=== PATIENT | male | born 1960 | race Caucasian/White ===

== ENCOUNTER 2017-10-30 07:40 | Inpatient (IN) | payer SELFPAY ==
[2017-10-30] MEDS ORDERED: Diltiazem HCl 125 MG, Admixture Fee 1 EACH in Sodium Chloride 0.9% 100 ML IVPB SCH (08:00)
[2017-10-30 08:05] LABS: #Basophils 0.1 thou/uL (0.0-0.2); #Eosinphils 0.6 thou/uL (0.0-0.7); #Lymphocytes 1.6 thou/uL (1.20-3.40); #Monocytes 0.5 thou/uL (0.11-0.59); #Neutrophils 3.4 thou/uL (1.40-6.50); %Basophils 1.1 % (0.0-1.0); %Eosinophils 9.5 % (0.0-10.0); %Lymphocytes 26.1 % (21.0-51.0); %Monocytes 7.9 % (0.0-10.0); %Neutrophils 55.5 % (42.0-75.0); Hemoglobin 14.2 g/dL (14.0-18.0); Mean Corpuscular HGB CONC 31.9 g/dL (32.0-36.0); Mean Corpuscular Hemoglobin 30.4 pg (27.0-31.0); Mean Corpuscular Volume 95.2 fl (80.0-94.0); Mean Platelet Volume 8.6 fL (7.4-10.4); Platelet Count 188 thou/uL (130-400); RBC Distribution Width 13.3 % (11.5-14.5); Red Blood Cell (RBC) Count 4.67 mill/uL (4.70-6.10); White Blood Cell (WBC) Count 6.1 thou/uL (4.8-10.8)
[2017-10-30 08:27] LABS: ALT (SGPT) 15 U/L (8-55); AST (SGOT) 11 U/L (5-34); Albumin 3.5 g/dL (3.5-5.0); Alkaline Phosphatase 51 U/L (40-150); Anion Gap 13 mmol/L (10-20); BUN (Urea Nitrogen) 26 mg/dL (8.4-25.7); Bilirubin, Total 0.2 mg/dL (0.2-1.2); CK (CPK) 45 U/L (30-200); Calc. Creatinine Clearance 0 mL/min (70-130); Calcium 8.6 mg/dL (7.8-10.44); Carbon Dioxide 21 mmol/L (22-29); Chloride 107 mmol/L (98-107); Estimated GFR-MDRD 79; Glucose 79 mg/dL (70-105); Potassium 4.5 mmol/L (3.5-5.1); Protein, Total 6.5 g/dL (6.0-8.3); Sodium 136 mmol/L (136-145)
[2017-10-30 08:31] LABS: CKMB 0.7 ng/mL (0-6.6); Troponin I Less than 0.010 ng/mL (< 0.028)
--- NOTE | 2017-10-30 09:56 | RAD ---
PORTABLE CHEST 1 VIEW: Date: 10/30/17 Time: 0812 hours HISTORY: Chest pain, exacerbation of atrial fibrillation. FINDINGS: The heart size is normal. The aorta is tortuous. No lobar consolidation, pneumothoraces, or pleural e ffusions are seen. IMPRESSION: No radiographic evidence of acute cardiopulmonary process. POS: OFF
[2017-10-30] MEDS ORDERED: Enoxaparin Sodium 80 MG/0.8 ML SYRINGE ONE (10:20)
--- NOTE | 2017-10-30 11:00 | CT ---
CT ANGIOGRAM CHEST WITH 3D RENDERING: Date: 10/30/17 HISTORY: 57-year-old male with history of chest pain. History of hypertension, COPD, and thyroid problems. FINDINGS: No significant CT evidence for acute pulmonary embolism. Small hiatal hernia. Three vessel coronary a rtery calcific disease. No pleural effusion or pericardial effusion. The visualized upper abdomen is unremarkable. The ascending aorta approximates 4.1 cm transversely, which is mildly dilated, but no f ocal aneurysm. IMPRESSION: No significant CT evidence for acute pulmonary embolism. Three vessel coronary artery calcific diseas e. Borderline or mildly dilated aortic root and ascending aorta without focal aneurysm. POS: CHANO
[2017-10-30] MEDS ORDERED: Acetaminophen 325 MG TAB PO PRN ×2 (12:22→12:28)
[2017-10-30] MEDS ORDERED: Ondansetron HCl/PF 4 MG/2 ML Vial IVP PRN ×2 (12:22→12:28)
[2017-10-30] MEDS ORDERED: Ondansetron ODT 4 MG TAB SL PRN (12:22)
[2017-10-30] MEDS ORDERED: Senokot 8.6 MG TAB PO PRN (12:28)
[2017-10-30] MEDS ORDERED: Ondansetron ODT 4 MG TAB PO PRN (12:28)
[2017-10-30] MEDS ORDERED: Artificial Tears 18 DROP/0.9 ML EA EYE PRN (12:28)
[2017-10-30] MEDS ORDERED: Diabetic Tussin 200 MG/10 ML UDCUP PO PRN (12:28)
[2017-10-30] MEDS ORDERED: Sodium Chloride 0.65% Nasal 44 ML BOT EA NARE PRN (12:28)
[2017-10-30] MEDS ORDERED: Loratadine 10 MG TAB PO PRN (12:28)
[2017-10-30] MEDS ORDERED: HYDROcodone/Acetaminophen 5/325 mg Tablet PO PRN (12:28)
[2017-10-30] MEDS ORDERED: Zolpidem Tartrate 5 MG TAB PO PRN (12:28)
[2017-10-30] MEDS ORDERED: hydrALAZINE 20 MG/ML VIAL SLOW IVP PRN (12:28)
[2017-10-30] MEDS ORDERED: Mag-Al 1200 mg/1200 mg/30 ML UDCUP PO PRN (12:28)
[2017-10-30] MEDS ORDERED: Milk Of Magnesia 30 ML UDCUP PO PRN (12:28)
[2017-10-30] MEDS ORDERED: Chloraseptic Spray 180 ml Bottle PO PRN (12:28)
[2017-10-30] MEDS ORDERED: Eucerin (Mineral Oil/Petrolatum,White) 30 gm Jar TOP PRN (12:28)
[2017-10-30] MEDS ORDERED: Loperamide HCl 2 MG CAP PO PRN (12:28)
[2017-10-30] MEDS ORDERED: Nitroglycerin 0.4 MG TAB (25 Tab Bottle) SL PRN (12:28)
[2017-10-30 12:55] VITALS: BMI 24.3
[2017-10-30] MEDS ORDERED: ISOVUE-370 76%-LOCM 1 ML ONE (14:26)
--- NOTE | 2017-10-30 14:39 | HP ---
PRIMARY CARE PHYSICIAN: [facility] call admission. REASON FOR ADMISSION: Atrial fibrillation with rapid ventricular response, status post cardioversion, chest pain. HISTORY OF PRESENT ILLNESS: A 57-year-old male who has a history of paroxysmal atrial fibrillation, who lives in [facility]. He woke up around 3:00 a.m. this morning, at that time he was feeling palpitation and chest discomfort. Initially, he thought that this episode will go away by itself because he was getting similar type of episode in the past, but it was spontaneously going away in few minutes; this time, it did not go away. He was having palpitations , dizziness, and chest discomfort with heaviness and tightness. He was also feeling mild shortness of breath. Somehow, he finished his night and when he woke up this morning around 7, he went to breakfast. After returning from breakfast, he was having more worse symptoms and it was getting worse and that is why he called paramedics and subsequently the patient was brought to emergency room. The patient was found with atrial fibrillation with RVR. He was hypotensive. He was having symptomatic fibrillation with RVR. The patient was given Cardizem bolus and subsequently Cardizem drip was started. The patient was brought to emergency room and he was hemodynamically unstable. After giving Lovenox, the patient was given DC cardioversion and subsequently the patient was converted to sinus rhythm. The patient was relatively hypotensive in the emergency room though he was not feeling any dizziness, palpitation or chest discomfort after cardioversion. He was feeling much better. His highest heart rate in the emergency room was 139 and irregular, and his lowest blood pressure in the emergency room was 75/56. The patient reports that he had this type of episode 3 times so far, one was in March, second was in June, and third one is now. The patient is only taking aspirin, but he is not on any chronic anticoagulation therapy. ALLERGIES: PENICILLIN. CURRENT HOME MEDICATIONS: Aspirin 81 mg p.o. daily, lisinopril 20 mg twice daily, Synthroid 50 mcg p.o. daily, Zoloft 50 mg p.o. daily, and Depakote 500 mg p.o. daily. REVIEW OF SYSTEMS: Please see my HPI for pertinent positive and negative. All other review of systems reviewed and negative except as mentioned in the HPI. Constitutional: Weight loss or gain, ability to conduct usual activities. Skin: Rash, itching. Eyes: Double vision, pain. ENT/Mouth: Nose bleeding, neck stiffness, pain, tenderness. Cardiovascular: Palpitations, dyspnea on exertion, orthopnea. Respiratory: Shortness of breath, wheezing, cough, hemoptysis, fever or night sweats. Gastrointestinal: Poor appetite, abdominal pain, heartburn, nausea, vomiting, constipation, or diarrhea. Genitourinary: Urgency, frequency, dysuria, nocturia. Musculoskeletal: Pain, swelling. Neurologic/Psychiatric: Anxiety, depression. Allergy/Immunologic: Skin rash, bleeding tendency. PAST MEDICAL HISTORY: The patient reports that he has paroxysmal atrial fibrillation history, hypertension, and coronary artery disease. PAST SURGICAL HISTORY: Appendicectomy and hernia repair. PAST PSYCHIATRIC HISTORY: Bipolar disorder. SOCIAL HISTORY: The patient denies any current IV drug abuse. He denies any smoking. He denies any alcohol abuse, but he abused multiple drugs in the past and that is why he is in [facility]. He does have history of IV drug abuse as well in past. FAMILY HISTORY: No strong family history of premature coronary artery disease, stroke or cancer. EMERGENCY ROOM COURSE: The patient was given Lovenox 68 mg subcu, normal saline 500 mL, etomidate 0.15 mg per kg one time dose, Cardizem bolus and Cardizem drip was started. PHYSICAL EXAMINATION: VITAL SIGNS: On arrival, blood pressure 100/65, pulse of 139 and irregular, respiratory rate 24, temperature 98.4, saturation 99% on room air, lowest blood pressure was 75/56, highest pulse rate is 140 and irregular. GENERAL: The patient is currently alert, awake, no obvious acute distress. HEAD: Normocephalic, atraumatic. EYES: Pupils round, reactive to light. Extraocular muscle intact. ENT: Oropharynx within normal limits. Poor dentition. Moist mucous membranes. No pharyngeal erythema, no exudate. NECK: Supple, no JVD, no thyromegaly, no carotid bruit, no jugular venous distention. LUNGS: Clear to auscultation without any rhonchi or rales. CARDIAC: Currently, the patient has: S1, S2 regular without any murmur, no gallop, no rub. ABDOMEN: Soft, bowel sounds present, nontender, nondistended. No organomegaly , no mass, no suprapubic tenderness. BACK: Unremarkable. No CVA tenderness. EXTREMITIES: Upper extremity: Passive movements of all joints are normal. Lower extremities: No edema. Good peripheral pulsation. SKIN: No skin rash. HEMATOLOGICAL: No lymphadenopathy. PSYCHIATRIC: Normal affect. NEUROLOGIC: The patient is alert and oriented x3. Cranial nerves II-XII intact. Motor and sensation within normal limits. No focal neurological deficit noted. SIGNIFICANT LABORATORY: EKG showing atrial fibrillation with rapid ventricular response, nonspecific ST-T changes. EKG done after cardioversion showing normal sinus rhythm, sinus bradycardia, low voltage QRS complex. CT angio negative for pulmonary embolism, mild dilatation of aortic root. Chest x-ray based on my review, no acute cardiopulmonary process. CBC: WBC 6.1, hemoglobin 14.2, platelet 188. D-dimer 0.72. BMP: Sodium 146, potassium 4.5, chloride 107, carbon dioxide 21, anion gap 13, BUN 26, creatinine 0.97, glucose 79, calcium 0.2. LFTs: AST 11, ALT 51, alkaline phosphatase 51. CK 45, CK-MB 0.7, troponin I less than 0.010, albumin 3.5, TSH 5.22, free T4 5.9. ASSESSMENT AND PLAN: 1. Atrial fibrillation with rapid ventricular response converted to normal sinus rhythm after cardioversion. 2. Hemodynamic instability due to problem #1 with atrial fibrillation with rapid ventricular response. The patient had hypotension and symptoms with the palpitation, chest pain, and shortness of breath resolved after cardioversion. 3. Hypothyroidism. 4. Anxiety and depression. 5. History of polysubstance abuse, lives in [facility]. 6. History of hypertension, but currently low blood pressure. 7. History of bipolar disorder. 8. Elevated D-dimer, but negative for pulmonary embolism. 9. DVT prophylaxis with Lovenox 1 mg per kg subcu twice daily. 10. Gastrointestinal prophylaxis with Pepcid 20 mg p.o. b.i.d. 11. Code status: The patient is FULL CODE. The patient does not have any surrogate decision maker. 12. Hypothyroidism 13. Anxiety depression PLAN: Admission to telemetry floor, monitor on telemetry floor, get echocardiography. Continue anticoagulation with Lovenox 1 mg per kg. Upon discharge, consider full dose of aspirin and as patient required cardioversion, we will consider Eliquis therapy for at least one month. We will monitor on telemetry floor for any recurrence. We will obtain echocardiography to assess ejection fraction and other structural abnormality. Disposition plan based on clinical course. We are expecting patient's stay in the hospital more than 24 hours. Plan of care discussed with the patient in detail. LICO
--- NOTE | 2017-10-30 17:53 | CON ---
DATE OF ADMISSION: 10/30/2017 DATE OF CONSULTATION: 10/30/2017 INDICATION FOR CONSULTATION: A 57-year-old patient with atrial fibrillation, rapid ventricular respo nse. HISTORY OF PRESENT ILLNESS: This is a very unfortunate 57-year-old gentleman has been [facility] due to drug abuse. He has had some problems using amphetamines. He is actual ly in a detention house at this time. He noticed that he was not feeling well, had increased heart rat e. He has felt palpitations. The facility there checked him out and found that he was in a rapid he art rate. He was sent to the emergency room. In the emergency room, he was found to have atrial fib rillation with rapid ventricular response which was not too extreme however, he was not feeling well. He was given IV diltiazem and then became hypotensive. He then underwent electrocardioversion of a trial fibrillation back to sinus rhythm in the emergency room after I believe he was given one shock. I cannot find exactly a dose that was given, but appears that he was converted back to sinus rhythm after electrical external shock and he had also complained of some chest tightness at the time of th e atrial fibrillation with rapid ventricular response. He does have risk factors of coronary artery disease which include history of tobacco abuse. He just recently stopped smoking, smoked up to 3 pac ks a day. There was no history of hypercholesterolemia, hypertension, at least not according to the patient. He does not have any early family history of heart disease. PAST MEDICAL HISTORY: Significant for an appendectomy, left hernia repair. He has had a history of atrial fibrillation. This apparently is his third episode. He also was told that he had a weak hear t. He has a history of COPD in the form of asthma. ALLERGIES: She is allergies allergic to PENICILLIN. MEDICATIONS: His medications prior to admission included aspirin, lisinopril, Synthroid, sertraline, and divalproex. At this time, he has been started on diltiazem orally, aspirin 325 mg a day, Depako te, he is on Lovenox, Pepcid, Synthroid, Zoloft, p.r.n. medications which are outlined in the compute r. Actually, they are holding his diltiazem at this time. He has remained in sinus rhythm since he was cardioverted. He has not apparently been on any antiarrhythmics in the past. He has not had a s tress test as far as he can remember and His last echocardiogram was performed apparently back in 2016 in [place], [place] where he was told he had a decrease in ejection fraction that he also might need a pacemaker, but no further workup was done according to the patient since he had no finances at the time. REVIEW OF SYSTEMS: Twelve-point review of systems is relatively unremarkable except what was noted i n the history of present illness. He denied any HEENT complaints. He had no pulmonary complaints ex cept for occasional asthma and COPD for which she has inhaler. He had no GI or complaints such as nausea, vomiting, diarrhea, dysuria, polyuria, or hematuria. He denied any lower extremity edema or swelling. No claudication symptoms and he denied any history of seizures or syncope. FAMILY HISTORY: Noncontributory for any early heart disease. SOCIAL HISTORY: He has 4 children, one of which has hypertension. The other ones are unremarkable f or any early history of heart disease. As far as his own family, he has been estranged from his fami ly for some time now. His mother a year or two ago from heart failure, but was an elderly age. PHYSICAL EXAMINATION: GENERAL: Reveals a middle-aged gentleman who actually appears older than his stated age. VITAL SIGNS: His blood pressure is 100/65, heart rate is 60 and regular, respiratory rate 13. He is afebrile. HEENT: Shows head to be normocephalic, atraumatic. He has poor dentition. Carotid pulses are prese nt without bruits. CHEST: Clear to auscultation without any rales, rhonchi or wheezing. CARDIOVASCULAR: Exam reveals a regular rate and rhythm with normal S1, S2. I cannot hear an S3 nor an S4, nor were there any significant murmurs, heaves, thrills, bruits or rubs noted. ABDOMEN: Soft and flat and nontender with positive bowel sounds. No organomegaly or masses are note d. Femoral pulses are present. EXTREMITIES: Showed no clubbing, cyanosis or edema. Pedal pulses are present. NEUROLOGIC: The patient is fully intact. He has normal strength, normal tone. He is able to ambula te normally. SKIN: Warm and dry, but has tattoos. IMPRESSION: 1. Atrial fibrillation with rapid ventricular response, which responded to electrical cardioversion and possibly also to the diltiazem. The initial heart rate in the emergency room was reported as marika ng 160 with a blood pressure of 80/50. He has remained stable after being undergoing cardioversion. Most likely, we will await the results of the echocardiogram. Also, he will need to undergo some ty pe of stress testing to rule out evidence for underlying ischemia as a possible etiology of the atria l fibrillation. His TSH was 5.22, but he is on thyroid medications. He does not appear to be hypoth yroid by any means. Other laboratory data was within normal limits. May need to start him on either beta blockers or some antiarrhythmic to decrease the risk of atrial fibrillation depending on whethe r or not the patient will and can take the medications. He most likely will need some type of assist ance getting the medications. 2. History of hypothyroidism. He will continue to take his replacements. We will need to check his overall T4 levels to see whether or not this is abnormal. I believe normally his T4 was 5.9 with a TSH of 5.22 which is associated with being on the medications and this appears to be stable. We coul d try him on low dose of diltiazem and see whether or not he tolerates that, ensure that he has enoug h volume on board, this may be enough to maintain a sinus rhythm. I will suggest she undergo stress testing and first we will evaluate the echocardiogram also.
[2017-10-30] MEDS: Famotidine 20 MG TAB PO SCH (21:18)
[2017-10-30] MEDS: Diltiazem HCl SR 60 mg Capsule PO SCH (21:18)
[2017-10-30] MEDS: Enoxaparin Sodium 60 MG/0.6 ML SYRINGE SC SCH (21:19)
[2017-10-31] MEDS: Levothyroxine Sodium 50 MCG TAB PO SCH (05:07)
[2017-10-31 05:28] LABS: #Basophils 0.1 thou/uL (0.0-0.2); #Eosinphils 0.6 thou/uL (0.0-0.7); #Lymphocytes 1.8 thou/uL (1.20-3.40); #Monocytes 0.6 thou/uL (0.11-0.59); #Neutrophils 2.9 thou/uL (1.40-6.50); %Basophils 1.6 % (0.0-1.0); %Eosinophils 10.3 % (0.0-10.0); %Lymphocytes 29.6 % (21.0-51.0); %Monocytes 10.1 % (0.0-10.0); %Neutrophils 48.5 % (42.0-75.0); Hemoglobin 12.9 g/dL (14.0-18.0); Mean Corpuscular HGB CONC 32.9 g/dL (32.0-36.0); Mean Corpuscular Volume 94.2 fl (80.0-94.0); Mean Platelet Volume 8.9 fL (7.4-10.4); Platelet Count 178 thou/uL (130-400); RBC Distribution Width 13.2 % (11.5-14.5); Red Blood Cell (RBC) Count 4.15 mill/uL (4.70-6.10); White Blood Cell (WBC) Count 5.9 thou/uL (4.8-10.8)
[2017-10-31 05:40] LABS: Anion Gap 10 mmol/L (10-20); BUN (Urea Nitrogen) 17 mg/dL (8.4-25.7); Calc. Creatinine Clearance 92 mL/min (70-130); Calcium 8.5 mg/dL (7.8-10.44); Carbon Dioxide 26 mmol/L (22-29); Cardiac Risk 5.4 (Less than 4.5); Chloride 106 mmol/L (98-107); Cholesterol 179 mg/dl (< 200 Desired); Estimated GFR-MDRD Greater than 90; Glucose 86 mg/dL (70-105); HDL Cholesterol 33 mg/dL (>60 Neg Risk); LDL Cholesterol, Calculated 116 mg/dL; Potassium 5.1 mmol/L (3.5-5.1); Sodium 137 mmol/L (136-145); Triglycerides 149 mg/dL (Less than 150)
[2017-10-31] MEDS ORDERED: Sodium Chloride 0.9% 10 ML ONE (07:12)
[2017-10-31 09:40] LABS: Troponin I Less than 0.010 ng/mL (< 0.028)
--- NOTE | 2017-10-31 10:23 | PDOC.PN ---
- Subjective Encounter Start Date: 10/31/17 Encounter Start Time: 08:10 -: old records requested/rev Patient seen and examined. No new complaints. No overnight events - Objective Resuscitation Status: Resuscitation Status FULL:Full Resuscitation MAR Reviewed: Yes Vital Signs & Weight: Vital Signs (12 hours) Temp Pulse Resp BP BP Pulse Ox 10/31/17 07:49 98.1 F 47 L 18 96 10/31/17 07:41 98.1 F 47 L 18 113/62 96 10/31/17 04:00 96.9 F L 46 L 16 133/72 98 10/31/17 00:00 97.6 F 50 L 16 117/70 99 Weight Weight 149 lb 4.8 oz I&O: 10/30/17 10/31/17 11/01/17 06:59 06:59 06:59 Intake Total 360 Output Total 150 Balance 210 Result Diagrams: 10/31/17 04:22 10/31/17 04:22 EKG Reviewed by me: Yes (nsr) Phys Exam - Physical Examination Constitutional: NAD HEENT: PERRLA, moist MMs, sclera anicteric Neck: no JVD, supple Respiratory: no wheezing, no rales, no rhonchi Cardiovascular: RRR, no significant murmur, no rub Gastrointestinal: soft, non-tender, no distention, positive bowel sounds Musculoskeletal: no edema, pulses present Neurological: non-focal, normal sensation, moves all 4 limbs Psychiatric: normal affect, A&O x 3 Skin: no rash, normal turgor Dx/Plan (1) Atrial fibrillation with RVR Code(s): I48.91 - UNSPECIFIED ATRIAL FIBRILLATION Status: Acute Comment: converted to NSR (2) Hypotension Status: Resolved (3) Anxiety and depression Code(s): F41.9 - ANXIETY DISORDER, UNSPECIFIED; F32.9 - MAJOR DEPRESSIVE DISORDER, SINGLE EPISODE, UNSPECIFIED Status: Chronic (4) Bipolar disorder Code(s): F31.9 - BIPOLAR DISORDER, UNSPECIFIED Status: Chronic (5) COPD (chronic obstructive pulmonary disease) Status: Chronic (6) H/O polydrug abuse Code(s): Z87.898 - PERSONAL HISTORY OF OTHER SPECIFIED CONDITIONS Status: Chronic (7) Hypothyroidism Code(s): E03.9 - HYPOTHYROIDISM, UNSPECIFIED Status: Chronic - Plan cont current plan of care * continue oral cardizem * cardiology recommendation noted * will get stress test to rule out ischemia as a etiology * echo pending * medication reviewed as below * symptomatic treatment * monitor today. Review of Systems - Review of Systems Eyes: negative: Pain, Vision Change, Conjunctivae Inflammation, Eyelid Inflammation, Redness, Other ENT: negative: Ear Pain, Ear Discharge, Nose Pain, Nose Discharge, Nose Congestion, Mouth Pain, Mouth Swelling, Throat Pain, Throat Swelling, Other Respiratory: negative: Cough, Dry, Shortness of Breath, Hemoptysis, SOB with Excertion, Pleuritic Pain, Sputum, Wheezing Cardiovascular: negative: chest pain, palpitations, orthopnea, paroxysmal nocturnal dyspnea, edema, light headedness, other Gastrointestinal: negative: Nausea, Vomiting, Abdominal Pain, Diarrhea, Constipation, Melena, Hematochezia, Other Genitourinary: negative: Dysuria, Frequency, Incontinence, Hematuria, Retention , Other Musculoskeletal: negative: Neck Pain, Shoulder Pain, Arm Pain, Back Pain, Hand Pain, Leg Pain, Foot Pain, Other Skin: negative: Rash, Lesions, Kimo, Bruising, Other - Medications/Allergies Allergies/Adverse Reactions: Allergies Allergy/AdvReac Type Severity Reaction Status Date / Time Penicillins Allergy Verified 10/30/17 07:57 Medications: Current Medications Acetaminophen (Tylenol) 650 mg PO Q4H PRN PRN Reason: Headache/Fever or Pain Hydrocodone Bitart/Acetaminophen ([place] 5/325) 1 tab PO Q4H PRN PRN Reason: Moderate Pain (4-6) Al Hydroxide/Mg Hydroxide (Maalox) 30 ml PO Q6H PRN PRN Reason: Heartburn or Indigestion Artificial Tears (Tears Naturale) 0 drop EA EYE PRN PRN PRN Reason: Dry Eyes Aspirin (Aspirin) 325 mg PO DAILY [facility] Diltiazem HCl (Cardizem Sr) 60 mg PO BID [facility] Last Admin: 10/30/17 21:18 Dose: 60 mg Divalproex Sodium (Depakote) 500 mg PO DAILY [facility] Enoxaparin Sodium (Lovenox) 60 mg SC 0900,2100 [facility] Last Admin: 10/30/17 21:19 Dose: 60 mg Famotidine (Pepcid) 20 mg PO BID [facility] Last Admin: 10/30/17 21:18 Dose: 20 mg Guaifenesin (Robitussin Sf) 200 mg PO Q4H PRN PRN Reason: Cough Hydralazine HCl (Apresoline) 10 mg SLOW IVP Q4H PRN PRN Reason: Systolic BP > 180 Levothyroxine Sodium (Synthroid) 50 mcg PO 0600 CHRIS Last Admin: 10/31/17 05:07 Dose: 50 mcg Loperamide HCl (Imodium) 2 mg PO PRN PRN PRN Reason: Diarrhea/Loose Stools Loratadine (Claritin) 10 mg PO DAILYPRN PRN PRN Reason: Sinus Symptoms Magnesium Hydroxide (Milk Of Magnesium) 30 ml PO DAILYPRN PRN PRN Reason: Constipation Mineral Oil/White Petrolatum (Eucerin Cream) 0 gm TOP BIDPRN PRN PRN Reason: Dry Skin Nitroglycerin (Nitrostat) 0.4 mg SL Q5MIN PRN PRN Reason: Chest Pain Ondansetron HCl (Zofran Odt) 4 mg PO Q6H PRN PRN Reason: Nausea/Vomiting Ondansetron HCl (Zofran) 4 mg IVP Q6H PRN PRN Reason: Nausea/Vomiting Phenol (Chloraseptic Thornton 180 Ml Bot) 0 ml PO PRN PRN PRN Reason: Sore Throat Senna (Senokot) 2 tab PO HSPRN PRN PRN Reason: Constipation Sertraline HCl (Zoloft) 50 mg PO DAILY [facility] Sodium Chloride ([place] Nasal [place] 0.65%) 0 ml EA NARE QIDPRN PRN PRN Reason: Nasal Congestion Zolpidem Tartrate (Ambien) 5 mg PO HSPRN PRN PRN Reason: Insomnia
[2017-10-31] MEDS: Diltiazem HCl SR 60 mg Capsule PO SCH ×2 (11:21→20:06)
[2017-10-31] MEDS: Aspirin 325 MG TAB PO SCH (11:23)
[2017-10-31] MEDS: Divalproex Sodium DR 500 MG TAB PO SCH (11:24)
[2017-10-31] MEDS: Famotidine 20 MG TAB PO SCH ×2 (11:24→20:06)
[2017-10-31] MEDS: Enoxaparin Sodium 60 MG/0.6 ML SYRINGE SC SCH ×2 (11:24→20:06)
[2017-10-31] MEDS ORDERED: Regadenoson 0.4 MG/5 ML SYRINGE ONE (13:21)
--- NOTE | 2017-10-31 15:35 | NM ---
RADIONUCLIDE STRESS/REST MYOCARDIAL PERFUSION SCAN WITH CT ATTENUATION CORRECTION AND SPECT IMAGING LEFT VENTRICULAR WALL MOTION EVALUATION AND EJECTION FRACTION 10/31/17 HISTORY: Chest pain. There is homogeneous uptake of radiotracer throughout the left ventricular myocardium on the stress a nd rest images. No focal perfusion defect or reversibility are evident. QGS analysis of gated SPECT images shows no focal wall motion abnormalities. Lexiscan protocol was us ed. Left ventricular ejection fracture is calculated at 70%. IMPRESSION: Normal left ventricular myocardial perfusion scan. Normal LVEF. POS: CHANO
--- NOTE | 2017-10-31 16:41 | PDOC.CTH ---
<Marie Hernandez - Last Filed: 10/31/17 20:55> Cardiology Progress Note - Subjective The pt seen and examined. No overnight events. No cardiac complaints. - Objective Vital Signs Temp Pulse Resp BP BP Pulse Ox 10/31/17 14:30 50 L 18 135/72 99 10/31/17 11:45 97.7 F 45 L 17 120/72 99 10/31/17 07:49 98.1 F 47 L 18 96 10/31/17 07:41 98.1 F 47 L 18 113/62 96 Weight 149 lb 4.8 oz 10/30/17 10/31/17 11/01/17 06:59 06:59 06:59 Intake Total 360 Output Total 150 Balance 210 - Physical Examination General/Neuro: alert & oriented x3 Neck: no JVD present Lungs: CTA (diminished at bases) Heart: RRR Abdomen: soft Extremities: other: - Telemetry Telemetry Rhythm: No edema - Labs Result Diagrams: 10/31/17 04:22 10/31/17 04:22 Troponin/CKMB CK-MB (CK-2) 0.7 ng/mL (0-6.6) 10/30/17 07:57 Troponin I Less than 0.010 ng/mL (< 0.028) 10/31/17 09:07 - Assessment/Plan 1. AFib wtih RVR and S/p Cardioversion on 10/30/17 - Remained in SB with HR 40s ; Change Diltiazem 60mg BID to 30mg BID; cont. to monitor 2. COPD/Asthma - stable with RA 3. Hypothyroidism - on thyroid med; managed by PCP 4. Bipolar disorder - stable 5. Anxiety and depression - stable 6. Illicit drug abuse - MAR reviewed * Echo on 10/31/17 showed EF 55-60%, mild MR, AR, and TR * Stress test result is pending at this time. Review of Systems - Review of Systems Constitutional: reports: no symptoms reported EENTM: reports: no symptoms reported Respiratory: reports: no symptoms reported Cardiac (ROS): reports: no symptoms reported ABD/GI: reports: no symptoms reported : reports: no symptoms reported Musculoskeletal: reports: no symptoms reported <Teresa Reid - Last Filed: 11/01/17 00:07> Cardiology Progress Note - Objective Vital Signs Temp Pulse Resp BP Pulse Ox 10/31/17 20:06 97.8 F 46 L 14 98 10/31/17 19:58 97.8 F 46 L 14 123/77 98 10/31/17 15:40 97.6 F 46 L 18 110/63 98 10/31/17 14:30 50 L 18 135/72 99 Weight 149 lb 4.8 oz 10/30/17 10/31/17 11/01/17 06:59 06:59 06:59 Intake Total 360 720 Output Total 150 Balance 210 720 - Labs Result Diagrams: 10/31/17 04:22 10/31/17 04:22 Troponin/CKMB CK-MB (CK-2) 0.7 ng/mL (0-6.6) 10/30/17 07:57 Troponin I Less than 0.010 ng/mL (< 0.028) 10/31/17 09:07 - Assessment/Plan Pt. seen and eval. by me. I agree with the A/P by the PEARL DIGGER. We discussed the pt. and plan.
[2017-11-01] MEDS: Levothyroxine Sodium 50 MCG TAB PO SCH (05:51)
[2017-11-01] MEDS ORDERED: Sodium Chloride 0.9% 10 ML ONE (07:08)
--- NOTE | 2017-11-01 09:39 | PDOC.PN ---
- Subjective Encounter Start Date: 11/01/17 Encounter Start Time: 08:00 Patient seen and examined. No new complaints. No overnight events - Objective Resuscitation Status: Resuscitation Status FULL:Full Resuscitation MAR Reviewed: Yes Vital Signs & Weight: Vital Signs (12 hours) Temp Pulse Resp BP BP Pulse Ox 11/01/17 07:35 97.9 F 52 L 18 115/71 96 11/01/17 04:00 98.1 F 55 L 15 121/70 97 Weight Weight 146 lb 9.6 oz I&O: 10/31/17 11/01/17 11/02/17 06:59 06:59 06:59 Intake Total 360 1260 Output Total 150 475 Balance 210 785 Result Diagrams: 10/31/17 04:22 10/31/17 04:22 EKG Reviewed by me: Yes (nsr) Phys Exam - Physical Examination Constitutional: NAD HEENT: PERRLA, moist MMs, sclera anicteric Neck: no JVD, supple Respiratory: no wheezing, no rales, no rhonchi Cardiovascular: RRR, no significant murmur, no rub Gastrointestinal: soft, non-tender, no distention, positive bowel sounds Musculoskeletal: no edema, pulses present Neurological: non-focal, normal sensation, moves all 4 limbs Lymphatic: no nodes Psychiatric: normal affect, A&O x 3 Skin: no rash, normal turgor Dx/Plan (1) Atrial fibrillation with RVR Code(s): I48.91 - UNSPECIFIED ATRIAL FIBRILLATION Status: Acute Comment: converted to NSR (2) Hypotension Status: Resolved (3) Anxiety and depression Code(s): F41.9 - ANXIETY DISORDER, UNSPECIFIED; F32.9 - MAJOR DEPRESSIVE DISORDER, SINGLE EPISODE, UNSPECIFIED Status: Chronic (4) Bipolar disorder Code(s): F31.9 - BIPOLAR DISORDER, UNSPECIFIED Status: Chronic (5) COPD (chronic obstructive pulmonary disease) Status: Chronic (6) H/O polydrug abuse Code(s): Z87.898 - PERSONAL HISTORY OF OTHER SPECIFIED CONDITIONS Status: Chronic (7) Hypothyroidism Code(s): E03.9 - HYPOTHYROIDISM, UNSPECIFIED Status: Chronic - Plan cont current plan of care * medication reviewed as below * symptomatic treatment * low CHAD2 score- aspirine ok for stroke prophylaxis * discharge today * stress test negative * echo normal * see discharge summery. Review of Systems - Review of Systems ENT: negative: Ear Pain, Ear Discharge, Nose Pain, Nose Discharge, Nose Congestion, Mouth Pain, Mouth Swelling, Throat Pain, Throat Swelling, Other Respiratory: negative: Cough, Dry, Shortness of Breath, Hemoptysis, SOB with Excertion, Pleuritic Pain, Sputum, Wheezing Cardiovascular: negative: chest pain, palpitations, orthopnea, paroxysmal nocturnal dyspnea, edema, light headedness, other Gastrointestinal: negative: Nausea, Vomiting, Abdominal Pain, Diarrhea, Constipation, Melena, Hematochezia, Other Genitourinary: negative: Dysuria, Frequency, Incontinence, Hematuria, Retention , Other Musculoskeletal: negative: Neck Pain, Shoulder Pain, Arm Pain, Back Pain, Hand Pain, Leg Pain, Foot Pain, Other Skin: negative: Rash, Lesions, Kimo, Bruising, Other - Medications/Allergies Allergies/Adverse Reactions: Allergies Allergy/AdvReac Type Severity Reaction Status Date / Time Penicillins Allergy Verified 10/30/17 07:57 Medications: Current Medications Acetaminophen (Tylenol) 650 mg PO Q4H PRN PRN Reason: Headache/Fever or Pain Hydrocodone Bitart/Acetaminophen ([place] 5/325) 1 tab PO Q4H PRN PRN Reason: Moderate Pain (4-6) Al Hydroxide/Mg Hydroxide (Maalox) 30 ml PO Q6H PRN PRN Reason: Heartburn or Indigestion Artificial Tears (Tears Naturale) 0 drop EA EYE PRN PRN PRN Reason: Dry Eyes Aspirin (Aspirin) 325 mg PO DAILY [facility] Last Admin: 10/31/17 11:23 Dose: 325 mg Diltiazem HCl (Cardizem) 30 mg PO BID [facility] Last Admin: 10/31/17 21:57 Dose: Not Given Divalproex Sodium (Depakote) 500 mg PO DAILY [facility] Last Admin: 10/31/17 11:24 Dose: 500 mg Enoxaparin Sodium (Lovenox) 60 mg SC 0900,2100 [facility] Last Admin: 10/31/17 20:06 Dose: 60 mg Famotidine (Pepcid) 20 mg PO BID [facility] Last Admin: 10/31/17 20:06 Dose: 20 mg Guaifenesin (Robitussin Sf) 200 mg PO Q4H PRN PRN Reason: Cough Hydralazine HCl (Apresoline) 10 mg SLOW IVP Q4H PRN PRN Reason: Systolic BP > 180 Levothyroxine Sodium (Synthroid) 50 mcg PO 0600 [facility] Last Admin: 11/01/17 05:51 Dose: 50 mcg Loperamide HCl (Imodium) 2 mg PO PRN PRN PRN Reason: Diarrhea/Loose Stools Loratadine (Claritin) 10 mg PO DAILYPRN PRN PRN Reason: Sinus Symptoms Magnesium Hydroxide (Milk Of Magnesium) 30 ml PO DAILYPRN PRN PRN Reason: Constipation Mineral Oil/White Petrolatum (Eucerin Cream) 0 gm TOP BIDPRN PRN PRN Reason: Dry Skin Nitroglycerin (Nitrostat) 0.4 mg SL Q5MIN PRN PRN Reason: Chest Pain Ondansetron HCl (Zofran Odt) 4 mg PO Q6H PRN PRN Reason: Nausea/Vomiting Ondansetron HCl (Zofran) 4 mg IVP Q6H PRN PRN Reason: Nausea/Vomiting Phenol (Chloraseptic [place] 180 Ml Bot) 0 ml PO PRN PRN PRN Reason: Sore Throat Senna (Senokot) 2 tab PO HSPRN PRN PRN Reason: Constipation Sertraline HCl (Zoloft) 50 mg PO DAILY [facility] Last Admin: 10/31/17 11:23 Dose: 50 mg Sodium Chloride ([place] Nasal [place] 0.65%) 0 ml EA NARE QIDPRN PRN PRN Reason: Nasal Congestion Zolpidem Tartrate (Ambien) 5 mg PO HSPRN PRN PRN Reason: Insomnia
[2017-11-01] MEDS: Famotidine 20 MG TAB PO SCH (09:55)
[2017-11-01] MEDS: Divalproex Sodium DR 500 MG TAB PO SCH (09:55)
[2017-11-01] MEDS: Aspirin 325 MG TAB PO SCH (09:55)
[2017-11-01] MEDS: Enoxaparin Sodium 60 MG/0.6 ML SYRINGE SC SCH (09:56)
--- NOTE | 2017-11-01 11:32 | DIS ---
DATE OF ADMISSION: 10/30/2017 DATE OF DISCHARGE: 11/01/2017 PRIMARY CARE PHYSICIAN: [facility] call admission. DISCHARGE DISPOSITION: Home. PRIMARY DISCHARGE DIAGNOSIS: Atrial fibrillation with rapid ventricular response converted to normal sinus rhythm status post cardioversion. SECONDARY DISCHARGE DIAGNOSES: Hypothyroidism, history of polydrug abuse, chronic obstructive pulmon arely disease, bipolar disorder, anxiety and depression. PRIMARY PROCEDURE/OPERATION: Cardioversion was performed in the emergency room. RADIOLOGICAL INVESTIGATION: Echocardiography showed normal EF. Stress test was negative for any isc hemia. CT angiography negative for pulmonary embolism. Chest x-ray was unremarkable. SIGNIFICANT LABORATORY DATA: Hemoglobin 12.9. D-dimer 0.72, creatinine 0.83. Electrolytes normal. LDL 116. Cardiac enzymes negative x3. TSH 5.22. DISCHARGE MEDICATIONS: Aspirin 325 mg p.o. daily, Cardizem 30 mg p.o. b.i.d., Depakote ER 500 mg p.o . at bedtime, Pepcid 20 mg p.o. b.i.d., Synthroid 50 mcg p.o. daily, lisinopril 5 mg p.o. daily, Zolo ft 50 mg p.o. daily. CONTRAINDICATIONS: None. The patient is not on anticoagulation because of his CHADS2 score is low a nd he is given aspirin for stroke prophylaxis. CODE STATUS: FULL CODE. INPATIENT CONSULTANTS: Dr. Reid was consulted while in hospital. ALLERGIES: PENICILLIN. DISCHARGE PLAN: Post hospital, the patient is instructed to follow with primary care physician and C ardiology as instructed. HOSPITAL COURSE: A 57-year-old male who lives at [facility] where he was having palpitations, dizziness, and chest tightness. He was feeling heart racing and that is why he called paramedics and facilities custodian s brought him to the emergency room, patient was found with atrial fibrillation with rapid ventricula r response. He was given Cardizem bolus and Cardizem drip was started. In the emergency room after giving Lovenox, patient was given DC shock and he was converted to normal sinus rhythm. We continued Lovenox therapy. We decided to give him Eliquis for one month given his cardioversion, but this pat ient does not have any high risk factors and does not have any high CHADS2 score and that is why for long-term, he will be only requiring aspirin. As this patient has cardioversion done and that is why we decided to give him for Eliquis therapy for 1 month. The patient remained in sinus rhythm. We p rescribed Cardizem 30 mg p.o. b.i.d. His blood pressure was running low and that is why we changed h is lisinopril to 5 mg p.o. daily. All new medication prescriptions were given to him. While in hospital for ischemic workup, we did stress test and that stress test came back negative. H is echocardiography is also showing normal EF. Currently, patient is completely asymptomatic. The patient is seen and examined at bedside today. Jaden melendez see my progress note from today for further detail.
[2017-11-01 12:10] VITALS: TEMP 97.6
--- NOTE | 2017-11-01 13:54 | PDOC.CTH ---
Cardiology Progress Note - Subjective The pt seen and examined. No overnight events. No cardiac complaints. He did not have any dizziness or lightheadedness when he got up and walked around the unit. - Objective Vital Signs Temp Pulse Resp BP BP Pulse Ox 11/01/17 12:05 97.6 F 50 L 18 128/80 98 11/01/17 07:35 97.9 F 52 L 18 115/71 99 11/01/17 04:00 98.1 F 55 L 15 121/70 97 Weight 146 lb 9.6 oz 10/31/17 11/01/17 11/02/17 06:59 06:59 06:59 Intake Total 360 1260 Output Total 150 475 Balance 210 785 - Physical Examination General/Neuro: alert & oriented x3 Neck: no JVD present Lungs: CTA Heart: RRR Abdomen: soft Extremities: other: (No edema) - Telemetry Telemetry Rhythm: SR - Labs Result Diagrams: 10/31/17 04:22 10/31/17 04:22 Troponin/CKMB CK-MB (CK-2) 0.7 ng/mL (0-6.6) 10/30/17 07:57 Troponin I Less than 0.010 ng/mL (< 0.028) 10/31/17 09:07 - Assessment/Plan 1. AFib wtih RVR and S/p Cardioversion on 10/30/17 - Remained in SB with HR 50s with Diltiazem 30mg BID and ASA 325mg daily; cont. to monitor; [id number] score is 0. 2. COPD/Asthma - stable with RA 3. Hypothyroidism - on thyroid med; managed by PCP 4. Bipolar disorder - stable 5. Anxiety and depression - stable 6. Illicit drug abuse - MAR reviewed * Echo on 10/31/17 showed EF 55-60%, mild MR, AR, and TR * Stress test pm 10/31/17 showed no ischemia. * From Cardiac standpoint, the pt is stable to d/c home. The pt will follow up with [facility] [employer] and possible Dr Reid' office within 2-4 wks. Review of Systems - Review of Systems Constitutional: reports: no symptoms reported EENTM: reports: no symptoms reported Respiratory: reports: no symptoms reported Cardiac (ROS): reports: no symptoms reported ABD/GI: reports: no symptoms reported : reports: no symptoms reported Musculoskeletal: reports: no symptoms reported Skin: reports: no symptoms reported Neurological: reports: no symptoms reported
[2017-11-01 18:22] VITALS: BP 139/82
--- NOTE | 2017-11-03 13:35 | STRESS ---
Acquisition Time: 2017-10-31 13:08:21 Total Exercise Time: 00:01:00 Test Indications: CHEST PAIN Medications: Protocol: LEXISCAN Max HR: 071 BPM 44% of Pred: 161 BPM Max BP: 124/076 mmHG Max Work Load: 1.0 METS RESTING ECG: SINUS BRADYCARDIA AT 43 BPM WITH EARLY R-WAVE TRANSITION SYMPTOMS: CHEST PAIN, LIGHTHEADEDNESS, CHEST TIGHTNESS NORMAL BP RESPONSE ECTOPY: NONE ECG STRESS: NO SIGNIFICANT CHANGES INTERPRETATION:NEGATIVE ECG/AWAIT NUCLEAR IMAGES FOR DEFINITIVE DIAGNOSIS Confirmed by SUBHASH AKERS ([id number]) on 11/03/2017 1:35:15 PM Referred By: Michele AKERS Confirmed By:SUBHASH AKERS
== END 2017-11-01 16:15 | disposition home or self-care (01) | DRG 310 ==
LOC: ERS 07:40 → 2NO 12:16
PROVIDERS: ADMIT Internal Medicine; ATTEND Internal Medicine
PROC: 5A2204Z Restoration of Cardiac Rhythm, Single (ICD-10-PCS; principal; 2017-10-30)
DX: I48.0 Paroxysmal atrial fibrillation (principal); I95.9 Hypotension, unspecified; I25.10 Atherosclerotic heart disease of native coronary artery without angina pectoris; J44.9 Chronic obstructive pulmonary disease, unspecified; I10 Essential (primary) hypertension; F31.9 Bipolar disorder, unspecified; E03.9 Hypothyroidism, unspecified; F19.11 Other psychoactive substance abuse, in remission; Z87.891 Personal history of nicotine dependence; Z79.82 Long term (current) use of aspirin; Z88.0 Allergy status to penicillin
CPT/HCPCS: 36415; 71045; 71275; 78452; 80048; 80053; 80061; 82550; 82553; 84436; 84443; 84484; 85025; 85379; 93005; 93017; 93306; 94760; 96361; 96365; 96372; 99152; A4216; A9500; J1650; J2785; J7050